=== PATIENT | male | born 1965 | race Hispanic/Latino ===

== ENCOUNTER 2021-05-31 05:45 | Inpatient (IN) | payer MEDICARE ==
[2021-05-31] MEDS ORDERED: ASPIRIN 81 MG TAB CHEW PO ONE (05:46)
[2021-05-31] MEDS ORDERED: HEPARIN 1,000 UNIT/1 ML VIAL IV ONE ×2 (05:46→06:15)
--- NOTE | 2021-05-31 05:55 | Emergency Department Report ---
ED Chest Pain HPI - General Chief Complaint: Chest Pain Stated Complaint: CHEST PAIN Time Seen by Provider: 05/31/21 05:46 Source: EMS Mode of arrival: Stretcher Limitations: No Limitations - History of Present Illness Initial Comments: 55-year-old male presents to the emergency department via EMS from home with a complaint of midsternal chest pain with radiation down the right arm that started about 1.5 hours prior to presentation. In route with EMS the patient was given a full dose aspirin and a sublingual nitroglycerin and his chest pain went down from about a 10 out of 10, down to a four. He has a history of previous coronary artery disease with cardiac stent. He does not have a local manager access as he is previously from [place]. He describes the chest discomfort as a tightness. No known aggravating or alleviating factors. - Related Data Allergies Allergy/AdvReac Type Severity Reaction Status Date / Time No Known Allergies Allergy Verified 05/31/21 05:52 Heart Score - HEART Score History: Moderately suspicious EKG: Non-specific Age: 45-65 Risk factors: > 3 risk factors or hx of atherosclerotic disease Troponin: < normal limit HEART Score: 5 - EKG Read Time Time EKG Completed: 05:46 EKG Read Time: 05:46 ED Review of Systems ROS: Stated complaint: CHEST PAIN Other details as noted in HPI Comment: All other systems reviewed and negative Constitutional: denies: chills, fever Eyes: denies: eye pain, vision change ENT: denies: ear pain, throat pain Respiratory: shortness of breath. denies: cough Cardiovascular: chest pain. denies: palpitations Gastrointestinal: denies: abdominal pain, vomiting Genitourinary: denies: dysuria, discharge Musculoskeletal: denies: back pain, arthralgia Skin: denies: rash, lesions Neurological: denies: headache, weakness ED Physical Exam - General Limitations: No Limitations - Other Other exam information: GENERAL: The patient is well-developed well-nourished. HENT: Normocephalic. Atraumatic. Patient has moist mucous membranes. EYES: Extraocular motions are intact. NECK: Supple. Trachea is midline. CHEST/LUNGS: Clear to auscultation. There is no respiratory distress noted. HEART/CARDIOVASCULAR: Regular. There is no tachycardia. There is no murmur. ABDOMEN: Abdomen is soft, nontender. Patient has normal bowel sounds. There is no abdominal distention. SKIN: Patient is somewhat diaphoretic. NEURO: The patient is awake, alert, and oriented. The patient is cooperative. The patient has no focal neurologic deficits. Normal speech. MUSCULOSKELETAL: There is no tenderness or deformity. There is no limitation range of motion. ED Course Vital Signs 05/31/21 05/31/21 05:49 05:55 Temperature 98.6 F 98 F Pulse Rate 79 78 Respiratory 20 18 Rate Blood Pressure 152/112 109/66 [Left] O2 Sat by Pulse 97 99 Oximetry - Consultations Consultation #1: 05/31/21 05:54 I spoke with the ancillary specialist, Dr. Bruce. He agreed that the initial EKG from EMS appears consistent with a septal ST elevation NV and we should proceed with activation of the [facility]. After the patient arrived in the emergency department we repeated the EKG which did show some improvement. Given the patient's previous EKG with EMS, his history of coronary artery disease, we will proceed with a code STEMI and [facility] activation. ZEB score - Zeb Score Age > 65: (0) No Aspirin use within the Past 7 Days: (1) Yes 3 or more CAD Risk Factors: (1) Yes 2 or more Angina events in past 24 hrs: (0) No Known CAD with more than 50% Stenosis: (1) Yes Elevated Cardiac Markers: (0) No ST Deviation Greater than 0.5mm: (1) Yes ZEB Score: 4 ED Medical Decision Making - Lab Data Result diagrams: 05/31/21 05:53 05/31/21 05:53 - EKG Data -: EKG Interpreted by Me EKG shows normal: sinus rhythm, axis, intervals, QRS complexes, ST-T waves (ST elevation to the septal leads, worst in V2. Mild ST depressions to the inferior leads.) Rate: normal - EKG Data When compared to previous EKG there are: previous EKG unavailable Interpretation: acute NV 05/31/21 05:56 EKG from EMS shows sinus rhythm, normal axis, normal intervals, ST elevation to the septal leads with inferior ST depressions concerning for septal NV. - Radiology Data Radiology results: image reviewed interpreted by me: Chest x-ray does not show any acute process. There are no pleural effusions, obvious pneumonia and there is no pneumothorax. No widened mediastinum. - Medical Decision Making This patient presented to the emergency department via EMS from home with a complaint of chest pain that started about 1.5 hours prior to presentation. EMS sent over an EKG that was concerning for a septal NV and a code STEMI was initiated. Upon arrival we did our own EKG that did appeared improved. There was still some mild septal ST elevation and mild inferior depression, and after discussion with the ancillary specialist the decision was made to continue taking the patient to the [facility]. Chest x-ray does not show any pneumonia, pleural effusions, pneumothorax, widened mediastinum, or any other acute process. The patient was given a full dose aspirin with EMS. We gave the patient a 4000 unit heparin bolus. The patient will be admitted to the ICU post [facility] and was accepted by the hospitalist service. Critical Care Time: Yes Critical care time in (mins) excluding proc time.: 31 Critical care attestation.: If time is entered above; I have spent that time in minutes in the direct care of this critically ill patient, excluding procedure time. Critical care time was spent on the prehospital arrival, evaluation of the EMS EKG, activation of code STEMI, initial evaluation of the patient upon arrival to the emergency department, multiple discussions with the ancillary specialist, multiple discussions with the patient, IV heparin. Critical Care Time: 31 minutes ED Disposition Clinical Impression: STEMI (ST elevation myocardial infarction), ACS (acute coronary syndrome) Disposition: ADMITTED INPATIENT Is pt being admited?: Yes Condition: Serious Time of Disposition: 07:05
[2021-05-31] MEDS ORDERED: HEPARIN/ 0.45% NACL DRIP 25,000 UNIT/500 ML BAG IV SCH (06:00)
[2021-05-31] MEDS ORDERED: HEPARIN/NS 5000 UNIT/500ML 500 ML IR ONE ×3 (06:02→06:16)
[2021-05-31] MEDS ORDERED: HEPARIN 10,000 UNITS/10 ML VIAL ONE ×2 (06:02→06:05)
[2021-05-31] MEDS ORDERED: LIDOCAINE (2%) 20 MG/1 ML VIAL 20 ML MDV INFILTRATI ONE ×2 (06:02→06:05)
--- NOTE | 2021-05-31 06:11 | XRay Report ---
CHEST 1 VIEW 05/31/2021 5:53 AM INDICATION / CLINICAL INFORMATION: CP. COMPARISON: None available. FINDINGS: SUPPORT DEVICES: None. HEART / MEDIASTINUM: No significant abnormality. LUNGS / PLEURA: No significant pulmonary or pleural abnormality. No pneumothorax. ADDITIONAL FINDINGS: No significant additional findings. IMPRESSION: 1. No acute findings. Signer Name: Pete hSarif MD Signed: 05/31/2021 6:06 AM Workstation Name: [id number]
[2021-05-31] MEDS ORDERED: NITROGLYCERIN SYRINGE 3 ML ONE (06:12)
[2021-05-31] MEDS ORDERED: VERAPAMIL 5 MG/2 ML INJ ONE (06:12)
[2021-05-31] MEDS ORDERED: HEPARIN 10,000 UNITS/10 ML VIAL IV ONE (06:15)
[2021-05-31] MEDS ORDERED: SODIUM CHLORIDE 0.9% 1000 ML 1,000 ML ONE (06:24)
[2021-05-31 06:30] LABS: Basophils % (Auto) 0.1 % (0.0-1.8); Eosinophils % (Auto) 0.1 % (0.0-4.3); Hematocrit 41.6 % (35.5-45.6); Hemoglobin 13.7 gm/dl (11.8-15.2); Lymphocytes # (Auto) 1.8 K/mm3 (1.2-5.4); Lymphocytes % (Auto) 17.9 % (13.4-35.0); Mean Corpuscular HGB Conc 33 % (32-34); Mean Corpuscular Volume 91 fl (84-94); Monocytes # (Auto) 0.9 K/mm3 (0.0-0.8); Monocytes % (Auto) 8.8 % (0.0-7.3); Platelet Count 175 K/mm3 (140-440); Red Blood Count 4.56 M/mm3 (3.65-5.03); Red Cell Distribution Width 13.8 % (13.2-15.2)
[2021-05-31] MEDS: fentaNYL 100 MCG/2 ML INJ ONE ×2 (06:32→06:44)
[2021-05-31] MEDS: MIDAZOLAM 2 MG/2 ML INJ ONE ×2 (06:32→06:44)
[2021-05-31 06:40] LABS: INR 0.96 (0.87-1.13)
[2021-05-31 06:41] LABS: Partial Thromboplastin Time 30.9 Sec. (24.2-36.6)
[2021-05-31 06:49] LABS: Creatine Kinase MB 3.5 ng/mL (0.0-4.0)
[2021-05-31 06:52] LABS: Alanine Aminotransferase 13 units/L (7-56); Albumin 4.2 g/dL (3.9-5); BUN/Creatinine Ratio 30; Blood Urea Nitrogen 27 mg/dL (9-20); Hemolysis Index 3
[2021-05-31] MEDS ORDERED: traMADol 50 MG TAB PO PRN (07:13)
[2021-05-31] MEDS ORDERED: oxyCODONE /ACETAMINOPHEN 5-325MG TAB PO PRN (07:25)
[2021-05-31] MEDS ORDERED: ONDANSETRON 4 MG/2 ML INJ IV PRN (07:25)
[2021-05-31] MEDS ORDERED: ACETAMINOPHEN 325 MG TAB PO PRN (07:25)
[2021-05-31] MEDS ORDERED: MORPHINE 4 MG/1 ML INJ IV PRN (07:25)
[2021-05-31] MEDS ORDERED: NALOXONE 0.4 MG/1 ML INJ IV PRN (07:25)
--- NOTE | 2021-05-31 07:30 | Consultation ---
History of Present Illness Consult date: 05/31/21 Consult reason: chest pain History of present illness: 55-year-old gentleman with history of coronary stenting in [place] 78 years ago, with no history of hypertension or diabetes mellitus, on pain medication for his neck problem and shoulder problems. Not on any antiplatelet agents are statins. He was on he was in his usual state of health up to this morning when he woke up at around 4:00 to 4:30 in the morning with a severe anterior chest pain. Paramedics were called and EKG done initially showed sinus rhythm with ST elevations in 1 and aVL also frequent peaked T waves in the anterior leads along with ST elevations in V2 and V3. By the time he presented to the emergency room after giving sublingual nitroglycerin, patient's chest pain markedly improved and EKG changes improved with only mild ST elevation in V2 and V3 and mild ST depressions in the inferior leads. Patient was taken to the catheterization laboratory on an emergency basis as a part of the STEMI protocol. Only medication patient at this time is pain medication like hydrocodone. He is not taking aspirin apparently aspirin upsets her stomach. Past History Past Medical History: acute ID (According to , patient is 7-8 years ago had a coronary stenting probably for heart attack in [facility] CAD. denies: diabetes, hypertension Past Surgical History: Other (Gives history of having cervical spine surgery done in the past.) Social history: ( for 9 years.), smoking (Used to smoke up to couple of years ago may be a pack per day.), alcohol abuse (Drinks alcohol socially.), other (Patient is using marijuana on a regular basis recently bec ause of his neck pain.) Family history: no significant family history Medications and Allergies Allergies Allergy/AdvReac Type Severity Reaction Status Date / Time No Known Allergies Allergy Verified 05/31/21 05:52 Active Meds: Active Medications Hydrocodone Bitart/Acetaminophen (Hydrocodone/Acetaminophen 5-325 Mg Tab) 1 each PO Q4H PRN PRN Reason: Pain, Moderate (4-6) Aspirin (Aspirin Ec 81 Mg Tab) 81 mg PO QDAY [facility] Atorvastatin Calcium (Atorvastatin 40 Mg Tab) 80 mg PO QHS [facility] Clopidogrel Bisulfate (Clopidogrel 75 Mg Tab) 75 mg PO QDAY [facility] Sodium Chloride (Nacl 0.9% 1000 Ml) 1,000 mls @ 75 mls/hr IV DIRECT [facility] Metoprolol Tartrate (Metoprolol Tartrate 50 Mg Tab) 50 mg PO BID [facility] Stop: 06/10/21 09:59 Tramadol HCl (Tramadol 50 Mg Tab) 50 mg PO Q4H PRN PRN Reason: Pain, Mild (1-3) Review of Systems Constitutional: no weight loss Ears, nose, mouth and throat: no ear discharge Cardiovascular: chest pain, shortness of breath, no dyspnea on exertion Respiratory: no cough Gastrointestinal: no abdominal pain Genitourinary Male: no hematuria Rectal: no bleeding Musculoskeletal: neck pain (History of cervical spine surgery.) Integumentary: no rash Neurological: no head injury Psychiatric: no depression Hematologic/Lymphatic: no easy bruising Physical Examination Vital Signs Temp Pulse Resp BP Pulse Ox 98.6 F 79 20 152/112 97 05/31/21 05:49 05/31/21 05:49 05/31/21 05:49 05/31/21 05:49 05/31/21 05:49 General appearance: no acute distress HEENT: Positive: PERRL, EOMI Neck: Positive: neck supple, trachea midline. Negative: JVD/HJR Cardiac: Positive: Regular Rhythm Lungs: Positive: clear to auscultation Neuro: Positive: Grossly Intact Abdomen: Positive: Unremarkable Male genitourinary: Positive: deferred Skin: Positive: Clear Extremities: Absent: edema Results 05/31/21 05:53 05/31/21 05:53 Cardiac Enzymes 05/31/21 Range/Units 05:53 AST 22 (5-40) units/L CK-MB (CK-2) 3.5 (0.0-4.0) ng/mL Coagulation 05/31/21 Range/Units 05:53 PT 13.9 (12.2-14.9) Sec. INR 0.96 (0.87-1.13) APTT 30.9 (24.2-36.6) Sec. CBC 05/31/21 Range/Units 05:53 WBC 10.2 (4.5-11.0) K/mm3 RBC 4.56 (3.65-5.03) M/mm3 Hgb 13.7 (11.8-15.2) gm/dl Hct 41.6 (35.5-45.6) % Plt Count 175 (140-440) K/mm3 Lymph # (Auto) 1.8 (1.2-5.4) K/mm3 [place] # (Auto) 0.9 H (0.0-0.8) K/mm3 Eos # (Auto) 0.0 (0.0-0.4) K/mm3 Baso # (Auto) 0.0 (0.0-0.1) K/mm3 Comprehensive Metabolic Panel 05/31/21 Range/Units 05:53 Sodium 146 H (137-145) mmol/L Potassium 4.0 (3.6-5.0) mmol/L Chloride 105.4 (98-107) mmol/L Carbon Dioxide 29 (22-30) mmol/L BUN 27 H (9-20) mg/dL Creatinine 0.9 (0.8-1.3) mg/dL Glucose 132 H (75-100) mg/dL Calcium 9.0 (8.4-10.2) mg/dL AST 22 (5-40) units/L ALT 13 (7-56) units/L Alkaline Phosphatase 67 (35-129) units/L Total Protein 6.8 (6.3-8.2) g/dL Albumin 4.2 (3.9-5) g/dL EKG interpretations - EKG Sinus rhythms and dysrhythmias: sinus rhythm Assessment and Plan 55-year-old gentleman with a known history of coronary artery disease, status post stenting of the LAD 7 8 years ago probably prior acute myocardial infarction in [place]. Presents with acute onset of chest pain while sleeping. Not taking any of the medications. Only medication he takes his pain medication for his shoulder and neck pain. You presented with acute onset of chest pain and initial EKG is sent by [facility] showed subtle findings consistent of acute anterior lateral myocardial infarction. Subsequently EKG markedly improved and ST T changes also markedly improved. Was taken to the catheterization laboratory on an emergency basis. Was noted to have widely patent mid LAD stent with akinetic distal part of the anterior wall which can be which may be old. Otherwise only mild irregularities noted elsewhere. It is possible patient may have coronary spasm versus acute thrombus that improved. Considering only mild irregularities noted at this time patient will be continued on aggressive risk factor modification. Patient claims he may not be able to take aspirin because in the past it caused stomach upset. We will start him on a baby aspirin in addition to Plavix and will start him on statin atorvastatin 80 mg a day To beta-ngoc. Only medication at home was pain medication. Patient is being followed at a pain clinic for his neck pain and shoulder pain. Patient is hemodynamically stable and will be monitored in CCU, will get serial EKGs and an echocardiogram. Discussed with the patient and his and they understand. At this time his diagnoses acute coronary syndrome probably secondary to spasm versus thrombus. - Patient Problems (1) ACS (acute coronary syndrome) Current Visit: Yes Status: Acute
--- NOTE | 2021-05-31 07:57 | Cardiac Catherization Report ---
DATE OF SERVICE: 05/31/2021 INDICATIONS: The patient is a 55-year-old gentleman who was sleeping and woke up around 4:00 and 4:30 in the morning with anterior chest pain, which is persistent. Paramedics were called. Initial EKG showed sinus rhythm with ST elevations in I and aVL and also precordial leads, V2 and V3 along with ST depressions in the inferior leads. STEMI protocol was followed and patient on arrival to the Emergency Room, was given sublingual nitroglycerin and his pain markedly improved and EKG changes markedly improved with only minor ST elevations in leads V2 and V3 and minor ST depressions. The patient's chest pain improved from intensity of 10 to 4 in the Emergency Room. Because of his clinical picture and EKG changes, he was taken to the catheterization laboratory on an emergency basis. The patient has a history of coronary artery stenting 8-9 years ago in [place]. The patient is willing to proceed with emergency angiography and arrangements were made to follow STEMI protocol. DESCRIPTION OF PROCEDURE: He was brought to the catheterization laboratory on an emergency basis. He was evaluated for moderate sedation and vital signs being stable, received IV Versed and fentanyl. Local anesthesia was given in the right wrist area and right radial artery access was obtained. Initially using 6-Bulgarian EBU 3.5 guiding catheter, angiograms of the left coronary artery were obtained. It is to be noted patient received 4000 units of heparin in the Emergency Room. The patient received intraarterial verapamil prior to obtaining the angiograms. Left coronary angiography showed only mild disease with widely patent stent in the mid LAD. Subsequently, angiography of the right coronary artery were obtained and left ventriculogram was performed using a 6-Bulgarian JR4 catheter. Considering no significant disease was noted, catheter and sheath were removed and good hemostasis was achieved with radial band application. The patient tolerated the procedure well without any hemodynamic changes or EKG changes. At the end of the procedure, the patient is communicating normally and breathing normally and no focal deficits noted. The patient was monitored with pulse oximetry and EKG monitoring and hemodynamic monitoring throughout the procedure. The patient's moderate sedation started at 6:32 a.m. and ended at 6:47 a.m. Patient was noted to have only mild disease with a widely patent stent in the mid LAD. He does have anterior wall hypokinesis to akinesis. Ejection fraction is 40-45%. Considering the above, patient will be continued on aggressive risk factor modification. Following findings were noted. HEMODYNAMICS: Opening aortic pressure 127/82. Left ventricular pressure 127/23. No gradient across the aortic valve. Estimated ejection fraction 40-45%. Left ventriculogram done in DAVIS projection using hand injection showed left ventricular size to be upper limits of normal with marked hypokinesis to akinesis of the distal half of the anterior wall. Rest of the ventricle is moving well. Overall, ejection fraction was felt to be around 40-45%. End-diastolic pressure was 23 mmHg. Right coronary artery nondominant vessel, small caliber, is angiographically smooth and normal. Left coronary artery: LAD and circumflex arteries are arising almost separately. Circumflex artery, dominant vessel shows mild irregularities in the mid obtuse marginal branch. Otherwise, rest of the circumflex artery and its branch are without significant disease. The LAD shows very mild irregularities, which is smooth in the proximal part with widely patent mid LAD stent. Overall, no significant lesions noted in the left coronary system. COLLATERALS: None. FINAL IMPRESSION: 1. Left ventricular size upper limits of normal with a marked hypokinesis to akinesis of the distal half of the anterior wall. Rest of the ventricle moving well. Ejection fraction around 40% to 45%. Mitral regurgitation was not evaluated. Mildly elevated end diastolic pressure of 23 mmHg noted. 2. Widely patent mid LAD stent with mild irregularities of the proximal LAD and mid obtuse marginal branch. Right coronary system is nondominant and normal. Considering the above angiographic pictures, will continue aggressive medical therapy and risk factor modification. Ptient is not on any of treatment for CAD prior to presentation. Findings were explained to the patient and his . They understand. The patient is being admitted to telemetry. Procedure was uncomplicated. TID: [id number] RECEIPT: [id number] ARPITA/BARNEY RIBEIRO
--- NOTE | 2021-05-31 09:09 | History and Physical Report ---
History of Present Illness Date of admission: 05/31/21 08:29 History of present illness: 55-year-old male with a history of coronary artery disease status post stent and chronic pain who presented with chest pain. Around 4 AM in the morning he awoke from his sleep with severe midsternal pain lasting 30 minutes. He had associated diaphoresis and shortness of breath. The pain was similar to the pain he experienced when he had an [place] years ago. Currently the patient only takes medication for his thyroid and shoulder pain. EKG done in route showed ST elevations in V1, aVL, with peaked T waves in ante rior leads and ST elevation in V1/V2. Repeat EKG in the ED showed mild ST elevation in V1/V2 and mild ST depressions in inferior leads. Chest pain improved after sublingual nitroglycerin. Cardiology was consulted and he was taken to the [facility] per STEMI protocol. Past History Past Medical History: acute FL (According to , patient is 7-8 years ago had a coronary stenting probably for heart attack in [facility].), CAD. denies: diabetes, hypertension Past Surgical History: Other (Gives history of having cervical spine surgery done in the past.) Social history: ( for 9 years.), smoking (Used to smoke up to couple of years ago may be a pack per day.), alcohol abuse (Drinks alcohol socially.), other (Patient is using marijuana on a regular basis recently because of his neck pain.) Family history: no significant family history Medications and Allergies Allergies Allergy/AdvReac Type Severity Reaction Status Date / Time No Known Allergies Allergy Verified 05/31/21 05:52 Home Medications Medication Instructions Recorded Confirmed Last Taken Type Baclofen [Lioresal] 10 mg PO QDAY 05/31/21 05/31/21 05/23/21 09:00 History Levothyroxine 25 mcg PO QDAY 05/31/21 05/31/21 05/30/21 09:00 History Meloxicam 15 mg PO QDAY 05/31/21 05/31/21 05/30/21 09:00 History Active Meds: Active Medications Acetaminophen (Acetaminophen 325 Mg Tab) 650 mg PO Q4H PRN PRN Reason: Pain MILD(1-3)/Fever >100.5/BEDOYA Hydrocodone Bitart/Acetaminophen (Hydrocodone/Acetaminophen 5-325 Mg Tab) 1 each PO Q4H PRN PRN Reason: Pain, Moderate (4-6) Aspirin (Aspirin Ec 81 Mg Tab) 81 mg PO QDAY [facility] Atorvastatin Calcium (Atorvastatin 40 Mg Tab) 80 mg PO QHS [facility] Clopidogrel Bisulfate (Clopidogrel 75 Mg Tab) 75 mg PO QDAY [facility] Sodium Chloride (Nacl 0.9% 1000 Ml) 1,000 mls @ 75 mls/hr IV DIRECT PATRICK Metoprolol Tartrate (Metoprolol Tartrate 50 Mg Tab) 50 mg PO BID [facility] Stop: 06/10/21 09:59 Morphine Sulfate (Morphine 4 Mg/1 Ml Inj) 4 mg IV Q4H PRN PRN Reason: Pain , Severe (7-10) Naloxone HCl (Naloxone 0.4 Mg/1 Ml Inj) 0.1 mg IV Q2MIN PRN PRN Reason: Res Rate </= 8 or 02 SAT < 92% Ondansetron HCl (Ondansetron 4 Mg/2 Ml Inj) 4 mg IV Q8H PRN PRN Reason: Nausea And Vomiting Sodium Chloride (Sodium Chloride 0.9% 10 Ml Flush Syringe) 10 ml IV BID PATRICK Sodium Chloride (Sodium Chloride 0.9% 10 Ml Flush Syringe) 10 ml IV PRN PRN PRN Reason: LINE FLUSH Tramadol HCl (Tramadol 50 Mg Tab) 50 mg PO Q4H PRN PRN Reason: Pain, Mild (1-3) Exam - Constitutional Vitals: Temp Pulse Resp BP Pulse Ox 98 F 78 18 109/66 99 05/31/21 05:55 05/31/21 05:55 05/31/21 05:55 05/31/21 05:55 05/31/21 05:55 HEART Score - HEART Score EKG: Non-specific Age: 45-65 Risk factors: > 3 risk factors or hx of atherosclerotic disease Troponin: Troponin T 0.019 ng/mL (0.00-0.029) 05/31/21 05:53 Troponin: < normal limit Results - Labs CBC & Chem 7: 06/01/21 05:55 06/01/21 05:55 Labs: Laboratory Last Values WBC 10.2 K/mm3 (4.5-11.0) 05/31/21 05:53 RBC 4.56 M/mm3 (3.65-5.03) 05/31/21 05:53 Hgb 13.7 gm/dl (11.8-15.2) 05/31/21 05:53 Hct 41.6 % (35.5-45.6) 05/31/21 05:53 MCV 91 fl (84-94) 05/31/21 05:53 MCH 30 pg (28-32) 05/31/21 05:53 MCHC 33 % (32-34) 05/31/21 05:53 RDW 13.8 % (13.2-15.2) 05/31/21 05:53 Plt Count 175 K/mm3 (140-440) 05/31/21 05:53 Lymph % (Auto) 17.9 % (13.4-35.0) 05/31/21 05:53 [place] % (Auto) 8.8 % (0.0-7.3) H 05/31/21 05:53 Eos % (Auto) 0.1 % (0.0-4.3) 05/31/21 05:53 Baso % (Auto) 0.1 % (0.0-1.8) 05/31/21 05:53 Lymph # (Auto) 1.8 K/mm3 (1.2-5.4) 05/31/21 05:53 [place] # (Auto) 0.9 K/mm3 (0.0-0.8) H 05/31/21 05:53 Eos # (Auto) 0.0 K/mm3 (0.0-0.4) 05/31/21 05:53 Baso # (Auto) 0.0 K/mm3 (0.0-0.1) 05/31/21 05:53 Seg Neutrophils % 73.1 % (40.0-70.0) H 05/31/21 05:53 Seg Neutrophils # 7.5 K/mm3 (1.8-7.7) 05/31/21 05:53 PT 13.9 Sec. (12.2-14.9) 05/31/21 05:53 INR 0.96 (0.87-1.13) 05/31/21 05:53 APTT 30.9 Sec. (24.2-36.6) 05/31/21 05:53 Sodium 146 mmol/L (137-145) H 05/31/21 05:53 Potassium 4.0 mmol/L (3.6-5.0) 05/31/21 05:53 Chloride 105.4 mmol/L (98-107) 05/31/21 05:53 Carbon Dioxide 29 mmol/L (22-30) 05/31/21 05:53 Anion Gap 16 mmol/L 05/31/21 05:53 BUN 27 mg/dL (9-20) H 05/31/21 05:53 Creatinine 0.9 mg/dL (0.8-1.3) 05/31/21 05:53 Estimated GFR > 60 ml/min 05/31/21 05:53 BUN/Creatinine Ratio 30 % 05/31/21 05:53 Glucose 132 mg/dL (75-100) H 05/31/21 05:53 Calcium 9.0 mg/dL (8.4-10.2) 05/31/21 05:53 Total Bilirubin 0.40 mg/dL (0.1-1.2) 05/31/21 05:53 AST 22 units/L (5-40) 05/31/21 05:53 ALT 13 units/L (7-56) 05/31/21 05:53 Alkaline Phosphatase 67 units/L (35-129) 05/31/21 05:53 Total Creatine Kinase 189 units/L (55-170) H 05/31/21 05:53 CK-MB (CK-2) 3.5 ng/mL (0.0-4.0) 05/31/21 05:53 CK-MB (CK-2) Rel Index 1.8 (0-4) 05/31/21 05:53 Troponin T 0.019 ng/mL (0.00-0.029) 05/31/21 05:53 Total Protein 6.8 g/dL (6.3-8.2) 05/31/21 05:53 Albumin 4.2 g/dL (3.9-5) 05/31/21 05:53 Albumin/Globulin Ratio 1.6 % 05/31/21 05:53 Blood Type O POSITIVE 05/31/21 05:53 Assessment and Plan Assessment and plan: #Acute coronary syndrome #History of [place] #Coronary artery disease status post stent -s/p cardiac cath: No significant blockages -continue ASA, statin and plavix -start metoprolol 50mg BID -stress test Wednesday -cardiac rehab -Cardiology following, assistance appreciated #Hypothyroidism -resume levothyroxine at home dose #Chronic L shoulder pain -patient follows up with chronic pain specialist -has had multiple neck surgeries -PRN pain medications
[2021-05-31 10:39] LABS: Creatine Kinase MB 23.5 ng/mL (0.0-4.0)
[2021-05-31] MEDS: METOPROLOL TARTRATE 50 MG TAB PO SCH ×2 (10:57→21:36)
[2021-05-31] MEDS: CLOPIDOGREL 75 MG TAB PO SCH (10:57)
[2021-05-31 11:11] LABS: Chol/HDL Ratio 2.78 %
[2021-05-31] MEDS: HYDROcodone/ACETAMINOPHEN 5-325 MG TAB PO PRN ×2 (11:42→20:36)
[2021-05-31] MEDS ORDERED: ALUM-MAG HYDROXIDE-SIMETHICONE 200-200-20MG/5ML ORAL LIQD 30 ML PO PRN (21:18)
[2021-05-31] MEDS: SODIUM CHLORIDE 0.9% 1000 ML 1,000 ML IV SCH (21:35)
[2021-06-01 06:31] LABS: Hematocrit 38.4 % (35.5-45.6); Hemoglobin 12.6 gm/dl (11.8-15.2); Mean Corpuscular HGB Conc 33 % (32-34); Mean Corpuscular Volume 91 fl (84-94); Platelet Count 128 K/mm3 (140-440); Red Blood Count 4.24 M/mm3 (3.65-5.03); Red Cell Distribution Width 13.7 % (13.2-15.2)
[2021-06-01 07:08] LABS: Blood Urea Nitrogen 20 mg/dL (9-20); Calcium 8.7 mg/dL (8.4-10.2); Hemolysis Index 19
[2021-06-01 07:31] LABS: BUN/Creatinine Ratio 33
--- NOTE | 2021-06-01 09:07 | Progress Note ---
Assessment and Plan Assessment and plan: #Acute coronary syndrome #History of [place] #Coronary artery disease status post stent -s/p cardiac cath: No significant blockages -continue ASA, statin and plavix -continue metoprolol 50mg BID -stress test Wednesday -cardiac rehab -Cardiology following, assistance appreciated #Hypothyroidism -continue levothyroxine at home dose #Chronic L shoulder pain -patient follows up with chronic pain specialist -has had multiple neck surgeries -PRN pain medications Hospitalist Physical - Constitutional Vitals: Temp Pulse Resp BP Pulse Ox 100.1 F H 80 18 115/74 98 06/01/21 05:17 06/01/21 05:17 06/01/21 05:17 06/01/21 05:17 06/01/21 08:44 General appearance: Present: no acute distress HEART Score - HEART Score EKG: Non-specific Age: 45-65 Risk factors: > 3 risk factors or hx of atherosclerotic disease Troponin: Troponin T 0.592 ng/mL (0.00-0.029) H* D 05/31/21 18:40 Troponin: < normal limit Results - Labs CBC & Chem 7: 06/01/21 05:55 06/01/21 05:55 Labs: Laboratory Last Values WBC 15.0 K/mm3 (4.5-11.0) H 06/01/21 05:55 RBC 4.24 M/mm3 (3.65-5.03) 06/01/21 05:55 Hgb 12.6 gm/dl (11.8-15.2) 06/01/21 05:55 Hct 38.4 % (35.5-45.6) 06/01/21 05:55 MCV 91 fl (84-94) 06/01/21 05:55 MCH 30 pg (28-32) 06/01/21 05:55 MCHC 33 % (32-34) 06/01/21 05:55 RDW 13.7 % (13.2-15.2) 06/01/21 05:55 Plt Count 128 K/mm3 (140-440) L 06/01/21 05:55 Lymph % (Auto) 17.9 % (13.4-35.0) 05/31/21 05:53 [place] % (Auto) 8.8 % (0.0-7.3) H 05/31/21 05:53 Eos % (Auto) 0.1 % (0.0-4.3) 05/31/21 05:53 Baso % (Auto) 0.1 % (0.0-1.8) 05/31/21 05:53 Lymph # (Auto) 1.8 K/mm3 (1.2-5.4) 05/31/21 05:53 [place] # (Auto) 0.9 K/mm3 (0.0-0.8) H 05/31/21 05:53 Eos # (Auto) 0.0 K/mm3 (0.0-0.4) 05/31/21 05:53 Baso # (Auto) 0.0 K/mm3 (0.0-0.1) 05/31/21 05:53 Seg Neutrophils % 73.1 % (40.0-70.0) H 05/31/21 05:53 Seg Neutrophils # 7.5 K/mm3 (1.8-7.7) 05/31/21 05:53 PT 13.9 Sec. (12.2-14.9) 05/31/21 05:53 INR 0.96 (0.87-1.13) 05/31/21 05:53 APTT 30.9 Sec. (24.2-36.6) 05/31/21 05:53 Sodium 131 mmol/L (137-145) L D 06/01/21 05:55 Potassium 4.1 mmol/L (3.6-5.0) 06/01/21 05:55 Chloride 97.9 mmol/L (98-107) L 06/01/21 05:55 Carbon Dioxide 24 mmol/L (22-30) 06/01/21 05:55 Anion Gap 13 mmol/L 06/01/21 05:55 BUN 20 mg/dL (9-20) 06/01/21 05:55 Creatinine 0.6 mg/dL (0.8-1.3) L 06/01/21 05:55 Estimated GFR > 60 ml/min 06/01/21 05:55 BUN/Creatinine Ratio 33 % 06/01/21 05:55 Glucose 133 mg/dL (75-100) H 06/01/21 05:55 Hemoglobin A1c 5.6 % (4-6) 06/01/21 05:55 Calcium 8.7 mg/dL (8.4-10.2) 06/01/21 05:55 Total Bilirubin 0.40 mg/dL (0.1-1.2) 05/31/21 05:53 AST 22 units/L (5-40) 05/31/21 05:53 ALT 13 units/L (7-56) 05/31/21 05:53 Alkaline Phosphatase 67 units/L (35-129) 05/31/21 05:53 Total Creatine Kinase 283 units/L (55-170) H 05/31/21 09:30 CK-MB (CK-2) 23.5 ng/mL (0.0-4.0) H 05/31/21 09:30 CK-MB (CK-2) Rel Index 8.3 (0-4) H 05/31/21 09:30 Troponin T 0.592 ng/mL (0.00-0.029) H* D 05/31/21 18:40 Total Protein 6.8 g/dL (6.3-8.2) 05/31/21 05:53 Albumin 4.2 g/dL (3.9-5) 05/31/21 05:53 Albumin/Globulin Ratio 1.6 % 05/31/21 05:53 Triglycerides 75 mg/dL (2-149) 05/31/21 09:30 Cholesterol 131 mg/dL (50-199) 05/31/21 09:30 LDL Cholesterol Direct 75 mg/dL (50-130) 05/31/21 09:30 HDL Cholesterol 47 mg/dL (40-59) 05/31/21 09:30 Cholesterol/HDL Ratio 2.78 % 05/31/21 09:30 Blood Type O POSITIVE 05/31/21 05:53 Antibody Screen Negative 05/31/21 05:53 [place]/IV: Voiding Method Toilet Active Medications - Current Medications Current Medications: Generic Name Dose Route Start Last Admin Trade Name Freq PRN Reason Stop Dose Admin Acetaminophen 650 mg 05/31/21 07:25 Acetaminophen 325 Mg Tab PO Q4H PRN Pain MILD(1-3)/Fever >100.5/BEDOYA Hydrocodone Bitart/Acetaminophen 1 each 05/31/21 07:13 05/31/21 20:36 Hydrocodone/Acetaminophen 5-325 Mg Tab PO 1 each Q4H PRN Administration Pain, Moderate (4-6) Al Hydrox/Mg Hydrox/Simethicone 30 ml 05/31/21 21:18 05/31/21 21:32 Alum-Mag Hydroxide-Simethicone [phone]/[phone] Oral Liqd 30 Ml PO 30 ml Q4H PRN Administration Indigestion Aspirin 81 mg 06/01/21 10:00 Aspirin Ec 81 Mg Tab PO QDAY PATRICK Atorvastatin Calcium 80 mg 05/31/21 22:00 05/31/21 21:36 Atorvastatin 40 Mg Tab PO 80 mg QHS PATRICK Administration Clopidogrel Bisulfate 75 mg 05/31/21 10:00 05/31/21 10:57 Clopidogrel 75 Mg Tab PO 75 mg QDAY PATRICK Administration Sodium Chloride 1,000 mls @ 75 mls/hr 05/31/21 07:15 05/31/21 21:35 Nacl 0.9% 1000 Ml IV 75 mls/hr DIRECT PATRICK Administration Metoprolol Tartrate 50 mg 05/31/21 10:00 05/31/21 21:36 Metoprolol Tartrate 50 Mg Tab PO 06/10/21 09:59 50 mg BID PATRICK Administration Morphine Sulfate 4 mg 05/31/21 07:25 05/31/21 17:06 Morphine 4 Mg/1 Ml Inj IV 4 mg Q4H PRN Administration Pain , Severe (7-10) Naloxone HCl 0.1 mg 05/31/21 07:25 Naloxone 0.4 Mg/1 Ml Inj IV Q2MIN PRN Res Rate </= 8 or 02 SAT < 92% Ondansetron HCl 4 mg 05/31/21 07:25 06/01/21 04:25 Ondansetron 4 Mg/2 Ml Inj IV 4 mg Q8H PRN Administration Nausea And Vomiting Sodium Chloride 10 ml 05/31/21 10:00 05/31/21 21:36 Sodium Chloride 0.9% 10 Ml Flush Syringe IV 10 ml BID PATRICK Administration Sodium Chloride 10 ml 05/31/21 07:25 Sodium Chloride 0.9% 10 Ml Flush Syringe IV PRN PRN LINE FLUSH Tramadol HCl 50 mg 05/31/21 07:13 Tramadol 50 Mg Tab PO Q4H PRN Pain, Mild (1-3)
[2021-06-01] MEDS: METOPROLOL TARTRATE 50 MG TAB PO SCH ×2 (11:42→22:03)
[2021-06-01] MEDS: ASPIRIN EC 81 MG TAB PO SCH (11:42)
[2021-06-01] MEDS: CLOPIDOGREL 75 MG TAB PO SCH (11:42)
--- NOTE | 2021-06-01 15:21 | Progress Note ---
Assessment and Plan Continue bASA, Plavix, statin, and BB. Echo may be obtained as an outpatient. Cardiac status is currently stable. Follow-up with Dr Bruce in 1-2 weeks ([phone]). - Patient Problems (1) ACS (acute coronary syndrome) Current Visit: Yes Status: Acute (2) Coronary artery spasm Current Visit: Yes Status: Suspected (3) CAD (coronary artery disease) Current Visit: Yes Status: Chronic Qualifiers: Coronary Disease-Associated Artery/Lesion type: [place] artery [place] vs. transplanted heart: [place] heart (4) Stented coronary artery Current Visit: Yes Status: Chronic (5) Hx of myocardial infarction Current Visit: Yes Status: Chronic (6) Chronic neck pain Current Visit: Yes Status: Chronic (7) Chronic shoulder pain Current Visit: Yes Status: Chronic (8) History of tobacco abuse Current Visit: Yes Status: Resolved Subjective Date of service: 06/01/21 Principal diagnosis: Chest Pain Interval history: Feeling well, no cardiac complaints. Febrile overnight. Objective Last Vital Signs Temp 99.2 F 06/01/21 11:44 Pulse 81 06/01/21 11:44 Resp 18 06/01/21 11:44 BP 100/65 06/01/21 11:44 Pulse Ox 96 06/01/21 11:44 - Physical Examination General: No Apparent Distress HEENT: Positive: EOMI, Normocephaly Neck: Positive: neck supple, trachea midline. Negative: JVD/HJR Cardiac: Positive: Reg Rate and Rhythm, S1/S2 Lungs: Positive: clear to auscultation Neuro: Positive: Grossly Intact Abdomen: Positive: Soft. Negative: Tender Skin: Negative: Rash, Wound Incision: Cardiac Cath Site (R radial - clean/dry/intact, no evidence of bleeding or hematoma) Musculoskeletal: No Pain Extremities: Present: lower extr. pulses. Absent: edema - Labs and Meds CBC 06/01/21 Range/Units 05:55 WBC 15.0 H (4.5-11.0) K/mm3 RBC 4.24 (3.65-5.03) M/mm3 Hgb 12.6 (11.8-15.2) gm/dl Hct 38.4 (35.5-45.6) % Plt Count 128 L (140-440) K/mm3 Comprehensive Metabolic Panel 06/01/21 Range/Units 05:55 Sodium 131 L D (137-145) mmol/L Potassium 4.1 (3.6-5.0) mmol/L Chloride 97.9 L (98-107) mmol/L Carbon Dioxide 24 (22-30) mmol/L BUN 20 (9-20) mg/dL Creatinine 0.6 L (0.8-1.3) mg/dL Glucose 133 H (75-100) mg/dL Calcium 8.7 (8.4-10.2) mg/dL - Imaging and Cardiology EKG: report reviewed, image reviewed Echo: pending Cardiac cath: report reviewed - EKG Sinus rhythms and dysrhythmias: sinus rhythm Myocardial infarction: anterior [place] (acute or rec, lateral [place] (acute or rece
[2021-06-01] MEDS: HYDROcodone/ACETAMINOPHEN 5-325 MG TAB PO PRN (22:05)
[2021-06-02] MEDS: SODIUM CHLORIDE 0.9% 1000 ML 1,000 ML IV SCH (01:01)
[2021-06-02] MEDS ORDERED: LEVOTHYROXINE 25 MCG TAB PO SCH (06:00)
--- NOTE | 2021-06-02 08:20 | Discharge Summary ---
Providers - Providers Date of Admission: 05/31/21 08:29 Attending physician: BRAEDEN TORRES MD 05/31/21 07:13 Consult to Cardiac Rehabilitation [CONS] Routine Reason For Exam: Cardiac Rehab Evaluation Primary care physician: JERICA POTTS NP Hospitalization Condition: Serious Exam - Constitutional Vitals: Temp Pulse Resp BP Pulse Ox 98.6 F 75 18 115/75 98 06/02/21 04:00 06/02/21 04:00 06/02/21 04:00 06/02/21 04:00 06/02/21 04:00 Plan Care Plan Goals: These follow your primary care provider. You should schedule follow-up with Dr. Bruce in 1-2 weeks for Cardiology follow up. You can schedule an appointment by calling [phone]. Start taking the medications prescribed to you during this visit. If you have chest pain similar to the pain he had prior to coming to the hospital, please take sublingual nitroglycerin and come to the ED. Follow up with: JERICA POTTS NP [Primary Care Provider] - 3-5 Days Prescriptions: AtorvaSTATin [Lipitor] 80 mg PO QHS 30 Days #60 tab Aspirin EC [Halfprin EC] 81 mg PO QDAY 30 Days #30 tablet Metoprolol [Lopressor TAB] 50 mg PO BID 30 Days #60 tablet Nitroglycerin [Nitrostat] 0.4 mg SL Q5M PRN 30 Days #30 tab PRN Reason: Chest Pain Clopidogrel [Plavix] 75 mg PO QDAY 30 Days #30 tablet
[2021-06-02 11:31] VITALS: BP 110/62
[2021-06-02] MEDS: METOPROLOL TARTRATE 50 MG TAB PO SCH (11:56)
[2021-06-02] MEDS: CLOPIDOGREL 75 MG TAB PO SCH (11:57)
[2021-06-02] MEDS: ASPIRIN EC 81 MG TAB PO SCH (11:57)
--- NOTE | 2021-06-02 13:13 | Progress Note ---
Assessment and Plan Echo 05/31/2021-EF 45 to 50%. Right ventricle systolic function is normal. Trace mitral regurgitation. Mild tricuspid regurgitation. Mild pulmonary hypertension Initiate Imdur 30 mg p.o. daily Continue bASA, Plavix, statin, and BB. Cardiac status is currently stable. Follow-up with Dr Bruce in 1-2 weeks ([phone]). Patient in conjunction with Dr. Kirby who agrees with this plan of care - Patient Problems (1) ACS (acute coronary syndrome) Current Visit: Yes Status: Acute (2) CAD (coronary artery disease) Current Visit: Yes Status: Chronic Qualifiers: Coronary Disease-Associated Artery/Lesion type: [place] artery [place] vs. transplanted heart: [place] heart (3) Chronic neck pain Current Visit: Yes Status: Chronic (4) Chronic shoulder pain Current Visit: Yes Status: Chronic (5) Hx of myocardial infarction Current Visit: Yes Status: Chronic (6) Stented coronary artery Current Visit: Yes Status: Chronic (7) Coronary artery spasm Current Visit: Yes Status: Suspected (8) History of tobacco abuse Current Visit: Yes Status: Resolved Subjective Date of service: 06/02/21 Principal diagnosis: Chest Pain Interval history: Patient walking around room no acute distress. Patient denies any chest pain Patient sinus 84 monitor Objective Vital Signs Temp Pulse Resp BP BP Pulse Ox 06/02/21 11:56 110/62 06/02/21 11:55 91 H 110/62 06/02/21 11:07 98.8 F 69 18 110/62 97 06/02/21 08:19 98.0 F 77 20 115/79 96 06/02/21 04:00 98.6 F 75 18 115/75 98 06/02/21 01:25 95 06/01/21 23:41 98.9 F 70 18 111/65 92 06/01/21 19:52 99.5 F 84 19 107/61 95 06/01/21 17:25 98.7 F 18 101/64 - Physical Examination General: No Apparent Distress HEENT: Positive: EOMI, Normocephaly Neck: Positive: neck supple, trachea midline. Negative: JVD/HJR Cardiac: Positive: Reg Rate and Rhythm Lungs: Positive: Normal Breath Sounds Neuro: Positive: Grossly Intact Abdomen: Positive: Soft. Negative: Tender Skin: Negative: Rash, Wound Incision: Cardiac Cath Site (R radial - clean/dry/intact, no evidence of bleeding or hematoma) Musculoskeletal: No Pain Extremities: Present: lower extr. pulses. Absent: edema - Imaging and Cardiology EKG: report reviewed, image reviewed Echo: report reviewed Cardiac cath: report reviewed - Telemetry EKG Rhythm: Sinus Rhythm - EKG Sinus rhythms and dysrhythmias: sinus rhythm Myocardial infarction: anterior [place] (acute or rec, lateral [place] (acute or rece
== END 2021-06-02 14:10 | disposition home or self-care (01) | DRG 287 ==
LOC: ED 05:45 → CATH 08:26 → IMCU 08:29 → 4A 18:27
PROVIDERS: ADMIT Student in an Organized Health Care Education/Training Program; ATTEND Student in an Organized Health Care Education/Training Program
PROC: 4A023N7 Measurement of Cardiac Sampling and Pressure, Left Heart, Percutaneous Approach (ICD-10-PCS; principal; 2021-05-31)
PROC: B2111ZZ Fluoroscopy of Multiple Coronary Arteries using Low Osmolar Contrast (ICD-10-PCS; 2021-05-31)
PROC: B2151ZZ Fluoroscopy of Left Heart using Low Osmolar Contrast (ICD-10-PCS; 2021-05-31)
DX: I24.9 Acute ischemic heart disease, unspecified (principal); I10 Essential (primary) hypertension; E11.9 Type 2 diabetes mellitus without complications; I25.10 Atherosclerotic heart disease of native coronary artery without angina pectoris; E03.9 Hypothyroidism, unspecified; I25.2 Old myocardial infarction; M25.512 Pain in left shoulder; G89.29 Other chronic pain; M54.2 Cervicalgia; I27.20 Pulmonary hypertension, unspecified
CPT/HCPCS: 36415; 71045; 80048; 80053; 80061; 82550; 82553; 83036; 84484; 85025; 85027; 85610; 85730; 86850; 86900; 86901; 93005; 93010; 93306; 93458; G0378; J1815; J3490; Q0162; C1887; C1894; J1644; J2250; J2270; J2405; J3010; J7030; Q9967; U0003